=== PATIENT | female | born 1955 | race Caucasian/White ===

== ENCOUNTER → 2018-07-02 | Outpatient (CLI) | payer BC ==
[2014-10-05 13:29] VITALS: BMI 34.4
[~2018-07-02] MED LIST: ACET500T68 PO; ASPI-1471 PO; ASPI-764 PO; ATEN-65 PO; ATR80PT PO; CETI10CA8 PO; CITA-141 PO; ESC10 PO; ESTR0.4513 PO; FLUT9.9S; GLIP1TAB PO; LANI SUBQ; LISI-346 PO; LOSA25TA57 PO; OXYC-865 PO; ROSI1TAB PO; SIMV-42 PO
--- NOTE | 2018-07-02 15:52 | RADIOLOGY IMAGING REPORT ---
FACILITY: [facility] - [place] PATIENT NAME: LEONARDO ALLEN : [id number] MR: [id number] V: [id number] EXAM DATE: ORDERING PHYSICIAN: CHRISTIE PAZ TECHNOLOGIST: Heather Palacios PROCEDURE:BILATERAL DIGITAL SCREENING MAMMOGRAM WITH CAD ASSISTED INTERPRETATION & 3D TOMOSYNTHESIS COMPARISON:Prior mammograms 05/03/15, 04/06/15, 07/09/12. INDICATIONS:SCREENING FINDINGS: The breasts are heterogeneously dense which can obscure small masses. The parenchymal pattern has remained stable allowing for difference in mammographic technique & patient positioning. DIAGNOSTIC CATEGORY 1--NEGATIVE. RECOMMENDATIONS: ROUTINE MAMMOGRAM AND CLINICAL EVALUATION. IMPRESSION: BIRADS 1: Negative. No significant abnormality is seen. Dictated by: Nena Guzmán M.D. on 07/02/2018 at 12:34 Transcribed by: ZAIDA on 07/02/2018 at 14:26 Approved by: Nena Guzmán M.D. on 07/02/2018 at 15:50 [facility]
== END ==
LOC: MAMO 04:08
PROVIDERS: ATTEND Nurse Practitioner Family
DX: Z12.31 Encounter for screening mammogram for malignant neoplasm of breast (principal)
CPT/HCPCS: 77063; 77067